=== PATIENT | male | born 1995 | race African-American/Black ===

== ENCOUNTER 2021-09-09 09:05 | Emergency (ER) | payer BC ==
[~2021-09-09] VITALS: Ht 170.2 cm; Wt 63.2 kg
[2021-09-09 09:31] VITALS: BP 129/83
[2021-09-09] MEDS ORDERED: DIPH,PERTUSS(ACELL),TET VAC/PF 0.5 ML SYRINGE. VAX IM ONE (10:15)
[2021-09-09] MEDS ORDERED: LIDOCAINE 1% Multi-Dose 20 ML VIAL. INJ ONE (10:15)
[2021-09-09] MEDS ORDERED: HYDROcodone/APAP 5/325MG 1 TAB TABLET PO ONE (10:15)
--- NOTE | 2021-09-09 10:31 | PHYS DOC ---
Past Medical History Additional Past Medical Histor: childhood Asthma (DANIELLE KARIMI [employer] WORKER) Past Surgical History: No Surgical History (DANIELLE KARIMI APRN) Smoking Status: Current Every Day Smoker Additional Information: pt uses vape pen daily Alcohol Use: None (DANIELLE KARIMI APRN) General Adult EDM: Chief Complaint: LACERATION/AVULSION HPI: HPI: Patient is a 25 year old male who presents with this morning 0845 states he punched a TV with his right hand. He now has a approximate 2 cm circular avulsion to the dorsal hand just distal to the first knuckle. Does not remember his last tetanus. Patient rates his pain an 8 out of 10 burning. History of smoking, vaping, childhood asthma. (DANIELLE KARIMI [employer] WORKER) Review of Systems: Review of Systems: Constitutional: Denies fever or chills. [] Eyes: Denies change in visual acuity. [] HENT: Denies nasal congestion or sore throat. [] Respiratory: Denies cough or shortness of breath. [] Cardiovascular: Denies chest pain or +right dorsal hand edema. [] GI: Denies abdominal pain, nausea, vomiting, bloody stools or diarrhea. [] : Denies dysuria. [] Musculoskeletal: Denies back pain or + right hand joint pain. [] Integument: Denies rash. + Laceration [] Neurologic: Denies headache, focal weakness or sensory changes. [] Endocrine: Denies polyuria or polydipsia. [] Lymphatic: Denies swollen glands. [] Psychiatric: Denies depression or anxiety. [] (DANIELLE KARIMI APRN) Heart Score: C/O Chest Pain: No (DANIELLE KARIMI APRN) Current Medications: Current Medications Medications (Trade) Dose Ordered Sig/Ary Start Time Stop Time Status Last Admin Dose Admin Acetaminophen/ Hydrocodone Bitart (Lortab 5/325) 1 tab 1X ONCE 09/09/21 10:15 09/09/21 10:16 UNV Diphtheria/ Tetanus/Acell Pertussis (ADACEL TDap SYRINGE) 0.5 ml ONCE ONCE 09/09/21 10:15 09/09/21 10:16 UNV Lidocaine HCl (Lidocaine 1% 20ml Vial) 20 ml 1X ONCE 09/09/21 10:15 09/09/21 10:16 UNV (DANIELLE KARIMI APRN) Physical Exam: PE: Constitutional: Well developed, well nourished, no acute distress, non-toxic appearance. [] HENT: Normocephalic, atraumatic, bilateral external ears normal, oropharynx moist, no oral exudates, nose normal. [] Eyes: PERRLA, EOMI, conjunctiva normal, no discharge. [] Neck: Normal range of motion, no tenderness, supple, no stridor. [] Cardiovascular:Heart rate regular rhythm, no murmur [] Lungs & Thorax: Bilateral breath sounds clear to auscultation [] Abdomen: Bowel sounds normal, soft, no tenderness, no masses, no pulsatile masses. [] Skin: Warm, dry, no erythema, no rash. 2 cm right dorsal hand first knuckle circular laceration/avulsion [] Back: No tenderness, no CVA tenderness. [] Extremities: Right dorsal hand at first knuckle tenderness, no cyanosis, no clubbing, ROM intact, 1+edema. [] Neurologic: Alert and oriented X 3, normal motor function, normal sensory function, no focal deficits noted. [] Psychologic: Affect normal, judgement normal, mood normal. [] (DANIELLE KARIMI APRN) Current Patient Data: Vital Signs: Vital Signs Date Time Temp Pulse Resp B/P (MAP) Pulse Ox O2 Delivery O2 Flow Rate FiO2 09/09/21 09:31 98.2 70 16 129/83 (98) 98 98.2 (DANIELLE KARIMI APRN) EKG: EKG: [] (DNAIELLE KARIMI APRN) Radiology/Procedures: Radiology/Procedures: [] Impression: [facility] [address] [place], [place] [id number] IMAGING REPORT Signed PATIENT: REJI DHILLON ACCOUNT: [id number] : 1995 LOCATION: ER AGE: 25 SEX: M EXAM STATUS: REG ER ORD. PHYSICIAN: DANIELLE KARIMI APRN REASON: LACERATION AFTER PUNCHING A TV CUT BETWEEN 2ND FINGER AND THUMB. PROCEDURE: HAND RIGHT 3V Site ID: [id number] EXAMINATION: XR HAND_RIGHT 3 VIEWS. HISTORY: 25 years Male LACERATION AFTER PUNCHING A TV CUT BETWEEN 2ND FINGER AND THUMB. COMPARISON: None. FINDINGS: No fracture, dislocation or radiopaque foreign body. The joint spaces and articular surfaces appear unremarkable. IMPRESSION: Unremarkable exam. Electronically signed by: Adelina Franklin MD (09/09/2021 10:39 AM) [id number] DICTATED and SIGNED BY: ADELINA FRANKLIN MD DATE: 09/09/21 [id number] (DANIELLE KARIMI APRN) Course & Med Decision Making: Course & Med Decision Making Pertinent Labs and Imaging studies reviewed. (See chart for details) See HPI. Alert and oriented x4. Ambulatory steady gait. Speaks in full clear sentences. Can wiggle his fingers. No joint laxity or deformity seen. Pulse strong and present. Cap refill less than 2 seconds. No numbness or tingling. Tetanus vaccine given. Laceration repair Location: Right dorsal hand distal to first knuckle. 2cm circular laceration, 0.5cm dorsal hand distal to the 2nd knuckle Local anesthesia: 1% lidocaine Interrupted sutures/Internal sutures: 7 sutures, dermabond Nerve/ligament/muscle damage: None Cleaning and irrigation: Saline chlorhexidine The appropriate timeout was taken. The area was prepped and draped in the usual sterile fashion. The wound was copiously irrigated with normal saline and chlorhexidine. Patient tolerated well without complication. Dressing was applied to the area follow-up education is given to observe for signs and symptoms of infection, bleeding and to follow-up promptly if these occur. Patient can return in 48 hours for a wound recheck. Sutures to be removed in 7 to 10 days. [] (DANIELLE KARIMI APRN) Course & Med Decision Making I have participated in the care of this patient and I have reviewed and agree with all pertinent clinical information above including history, exam, and recommendations. Roxie Chacon DO (ROXIE CHACON DO) Leslie Disclaimer: Leslie Disclaimer: This electronic medical record was generated, in whole or in part, using a voice recognition dictation system. (DANIELLE KARIMI APRN) Departure Departure Impression: Primary Impression: Laceration Disposition: 01 HOME / SELF CARE / HOMELESS Condition: STABLE Referrals: NO PCP (PCP) Patient Instructions: Laceration Care, Adult Additional Instructions: Sutures to be removed in 10 days. He can go to your primary care or he can come here or urgent care to get them removed. Use soap and water for cleaning. Keep clean and covered. Use ibuprofen for pain. Use ice and elevation to help with swelling and pain. DANIELLE KARIMI APRN Sep 09, 2021 10:31 ROXIE CHACON DO Sep 09, 2021 14:34
--- NOTE | 2021-09-09 10:41 | RAD ---
Site ID: [id number] EXAMINATION: XR HAND_RIGHT 3 VIEWS. HISTORY: 25 years Male LACERATION AFTER PUNCHING A TV CUT BETWEEN 2ND FINGER AND THUMB. COMPARISON: None. FINDINGS: No fracture, dislocation or radiopaque foreign body. The joint spaces and articular surfaces appea r unremarkable. IMPRESSION: Unremarkable exam. Electronically signed by: Enrrique Franklin MD (09/09/2021 10:39 AM) [id number]
== END 2021-09-09 11:57 | disposition home or self-care (01) ==
LOC: ER 09:05
DX: S61.411A Laceration without foreign body of right hand, initial encounter (principal); Y99.8 Other external cause status; F17.200 Nicotine dependence, unspecified, uncomplicated; J45.909 Unspecified asthma, uncomplicated; Y28.8XXA Contact with other sharp object, undetermined intent, initial encounter; Y93.89 Activity, other specified; Y92.89 Other specified places as the place of occurrence of the external cause
CPT/HCPCS: 12001; 73130; 90471; 90715; 99283; J3490